=== PATIENT | male | born 2000 | race Two or more races ===

== ENCOUNTER 2024-09-25 18:32 | Emergency (ER) | payer SELFPAY ==
[2024-09-25 19:30] VITALS: BP 131/85; PULSE 60; RESP 18; TEMP 37.1; O2SAT 96
[2024-09-25] MEDS: IBUPROFEN TAB 400 MG TABLET 800 MG PO (19:42)
--- NOTE | 2024-09-25 20:02 | EDNOTE_ITS ---
ED Skin Abcess FB-RME/HPI General Chief complaint: Skin/Abscess/Foreign Body Stated complaint: BUMPS ON RIGHT HAND Time Seen by Provider: 09/25/24 19:35 Arrival date/time: 09/25/24 18:32 23M with no significant PMH presents to ED with 1 day of painful and itchy rash on R hand. Patient notes his hands sweat a lot. Patient denies recent hiking. Limitations: no limitations Related Data Previous Rx's ?Medication ?Instructions ?Recorded clobetasol 0.05 % topical ointment 1 applic topical BI D 2 weeks #15 09/25/24 grams Allergies Allergy/AdvReac Type Severity Reaction Status Date / Time No Known Allergies Allergy Verified 09/25/24 18:35 Review of Systems Review of Systems Systems Reviewed: All systems reviewed, normal except as documented Constitutional Constitutional: Reports system reviewed and no additional complaints, except as documented, Denies fever(s) and Denies headache(s) ENT Ears, Nose, Mouth, and Throat: Denies disequilibrium and Denies headache(s) Cardiovascular Cardiovascular: Reports system reviewed and no additional complaints, except as documented, Denies chest pain and Denies dyspnea Respiratory Respiratory: Reports system reviewed and no additional complaints, except as documented, Denies cough and Denies dyspnea Gastrointestinal Gastrointestinal: Reports system reviewed and no additional complaints, except as documented, Denies abdominal pain, Denies nausea and Denies vomiting Integumentary/Breasts Skin/Breast: Reports as per HPI, Reports pruritus, Reports rash and Reports skin pain Neurologic Neurologic: Reports system reviewed and no additional complaints, except as documented, Denies confusion, Denies disequilibrium and Denies headache(s) Psychiatric Psychiatric: Denies confusion Past Medical History Social History SMOKING STATUS: Never smoker ED Exam General Limitations: Present no limitations General appearance: Present alert and in no apparent distress Head Head exam: Present atraumatic Eye Eye exam: Present normal appearance, PERRL and EOMI ENT ENT exam: Present normal exam, normal oropharynx and mucous membranes moist Neck Neck exam: Present normal inspection, full ROM and trachea midline Chest Chest inspection: Present normal inspection and symmetric chest wall rise Respiratory Respiratory exam: Present normal lung sounds bilaterally Cardiovascular Cardiovascular exam: Present regular rate, normal rhythm and normal heart sounds Abdominal Exam Abdominal exam: Present soft and normal bowel sounds Extremities Exam Extremities exam: Present normal inspection and full ROM Back Exam Back exam: Present normal inspection and full ROM Neurological Exam Neurological exam: Present alert, oriented X3 and CN II-XII intact Psychiatric Psychiatric exam: Present normal affect and normal mood Skin Skin exam: Present warm, dry, intact, normal color and rash Course Quality Measures none Orders Category Date Time Status Ibuprofen Tab [Motrin Tab] Med 09/25/24 19:36 Discontinued 800 mg PO X1 ONE Vital Signs Vital signs: Vital Signs Temperature 98.8 F 09/25/24 19:30 Pulse Rate 60 09/25/24 19:30 Respiratory Rate 18 09/25/24 19:30 Blood Pressure 131/85 H 09/25/24 19:30 Pulse Oximetry (%) 96 09/25/24 19:30 Oxygen Delivery Method Room Air 09/25/24 19:30 O2 at 96% on RA and WNLs Skin / Abscess / Foreign Body MDM Narrative MDM Narrative:: 23M with no significant PMH presents to ED with 1 day of painful and itchy rash on R hand. Patient notes his hands sweat a lot. Patient denies recent hiking. Physical exam reveals some hand swelling and vesicular rash in the skin folds around fingers. ROM intact. No skin redness. Patient is afebrile, calm, and alert. Likely dyshidrotic eczema. [employer] given. Patient data External records reviewed:: None Clinical information provided by:: patient Social determinants that could affect healthcare access:: none Patient has the following chronic illnesses:: none How is presenting disease/condition affected by chronic disease/condition?: no chronic disease Evaluation data The following diagnostics were reviewed and interpreted by me:: other (specify) (none) Lab and/or radiology exams considered but not ordered:: not ordered Interpretation Summary: n/a Medications / Prescriptions Medications or Prescriptions considered but not ordered:: ordered Medication administrations:: Medication Administration History Discontinued Medications Ibuprofen (Ibuprofen Tab 400 Mg Tablet) 800 mg PO X1 ONE Stop: 09/25/24 19:37 Last Admin: 09/25/24 19:42 Dose: 800 mg Documented By: KF above Consultations Consultation(s) initiated? (list below): No Diagnosis Skin/Abscess Differential Diagnosis: abscess of skin or subcutaneous tissue, viral exanthem, dermatophytosis, urticaria, herpes zoster, allergic reaction to drug, cellulitis, eczema, insect bites, impetigo, contact dermatitis and other (dyshidrotic eczema) Most likely diagnosis given after review of the tests above:: dyshidrotic eczema Admission Indicated Admission indicated?: not indicated Admission Request Was there a request for admission?: No Disposition Plan Disposition Plan: Discharge Discharge Attestation Discharge Attestation: The patient and all family members were given an opportunity to ask questions and understood the discharge instructions. Discharge instructions specifically effects, indications for sooner follow up or return to the emergency department, and the expected course of current diagnosis. Patient condition: Stable Discharge Plan Plan Patient Disposition: HOME (Self Care) Disposition Comment: Stable Prescriptions/Referrals Prescriptions/Med Rec: New clobetasol 0.05 % ointment 1 applic topical BID 14 Days Qty: 15 0RF Problem List Clinical Impression: Eczema, dyshidrotic Patient/Caregiver Discharge Instructions Additional Instructions: Please follow-up with PCP within 24-48 hours and return immediately if symptoms worsen. Keep hands dry. Use this cream for 2 weeks max. Do not apply this cream to other parts of the body, especially not the face or skin folds. Print Language: Korean Stand Alone Forms: Patient Portal Info Letter TANGELA/NEL Supervising Physician YENNY Supervising Physician: Dr. Cobos
== END 2024-09-25 19:51 | disposition home or self-care (01) ==
PROVIDERS: Emergency Provider Emergency Medicine
DX: L30.1 Dyshidrosis [pompholyx] (principal)
CPT/HCPCS: 99282; A9270